=== PATIENT | male | born 1990 | race Caucasian/White ===

== ENCOUNTER 2021-12-14 11:58 | Emergency (ER) | payer SELFPAY ==
[~2021-12-14] VITALS: Ht 172.7 cm; Wt 67.1 kg
--- NOTE | 2021-12-14 12:20 | NUR ---
BIBS A 31YRS OLD MALE WITH C/C TO LEFT FOOT PUCTURED INJURY. PLACED PATIENT COMFORTABLY IN BED VITALS CHECKED.
[2021-12-14] MEDS ORDERED: TDAP [DIPH/PERTUSSIS/TET] 0.5 ML VIAL IM ONE ×2 (12:30→12:41)
--- NOTE | 2021-12-14 12:30 | NUR ---
DRESSING DONE AND EXAMINED BY ER
--- NOTE | 2021-12-14 12:38 | NUR ---
X-RAY OF THE LEFT FOOT DONE AT BED SIDE.
[2021-12-14 13:38] VITALS: BP 112/69
--- NOTE | 2021-12-14 13:38 | NUR ---
Patient discharged to home in stable condition. Written and verbal after care instructions given. Patient verbalizes understanding of instruction.
== END 2021-12-14 13:39 | disposition home or self-care (01) ==
LOC: ER 12:09
DX: S91.332A Puncture wound without foreign body, left foot, initial encounter (principal); W45.8XXA Other foreign body or object entering through skin, initial encounter; Y93.89 Activity, other specified; Y92.89 Other specified places as the place of occurrence of the external cause; Y99.8 Other external cause status
CPT/HCPCS: 73630-TC; 90715